=== PATIENT | female | born 1990 | race Caucasian/White ===

== ENCOUNTER 2019-02-25 19:11 | Emergency (ER) | payer OTHER ==
--- NOTE | 2019-02-25 20:03 | PDOC ---
Rapid Medical Evaluation Chief Complaint: Pain Time Seen by Provider: 02/25/19 20:00 Medical Evaluation: 02/25/19 20:00 I have performed a brief exam on this patient. CC: right middle finger pain and swelling PE: swelling to right middle finger at the medial cuticle extending towards the volar surface Orders: nothing The patient will proceed to the ER for further evaluation. Discharge Disposition - Diagnosis Finger pain, right - Referrals - Patient Instructions - Post Discharge Activity
[2019-02-25 20:04] VITALS: BP 122/74; PULSE 84; TEMP 98.2; BMI 25.6
--- NOTE | 2019-02-25 21:25 | PDOC ---
History of Present Illness - General Chief Complaint: Pain Stated Complaint: INFECTED FINGER Time Seen by Provider: 02/25/19 20:00 History Source: Patient - History of Present Illness Initial Comments: 02/25/19 21:23 29 year old female c/o pain to right 3rd digit distal end pain and swelling. patient reports that she bites her nails. denies trauma or injury 02/25/19 21:53 Past History - Past Medical History Allergies/Adverse Reactions: Allergies Allergy/AdvReac Type Severity Reaction Status Date / Time No Known Allergies Allergy Verified 02/25/19 20:01 Home Medications: Ambulatory Orders NK [No Known Home Medication] 02/25/19 Anemia: No Asthma: No Cancer: No Cardiac Disorders: No COPD: No - Suicide/Smoking/Psychosocial Hx Smoking History: Never smoked Review of Systems - Review of Systems Able to Perform ROS?: Yes Is the patient limited Kyrgyz proficient: No Integumentary: Yes: Other (finger pain) *Physical Exam - Vital Signs Last Vital Signs Temp Pulse Resp BP Pulse Ox 98.2 F 84 20 122/74 100 02/25/19 20:01 02/25/19 20:01 02/25/19 20:01 02/25/19 20:01 02/25/19 20:01 - Physical Exam General Appearance: Yes: Appropriately Dressed Extremity: positive: Other (right 3rd digit circumferential erythema with fluid collection? no streaking + erythema) Integumentary: positive: Erythema Neurologic: positive: Fully Oriented, Alert Medical Decision Making - Medical Decision Making I spoke to Dr. Goldman. reports that dr goldman is not police surgeon for hand surgery. 02/25/19 21:55 patient offered to transfer to a tertiary [facility] center. patient is signing out AMA. patient reports that she will drive self to [facility] *DC/Admit/Observation/Transfer Diagnosis at time of Disposition: Finger pain, right, Felon of finger of right hand - Discharge Dispostion Disposition: AGAINST MEDICAL ADVICE - Referrals - Patient Instructions Additional Instructions: please return for any worsening symptoms. - Post Discharge Activity
--- NOTE | 2019-02-25 21:39 | PDOC ---
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 - Post Discharge Activity
== END 2019-02-25 21:51 | disposition left against medical advice (07) ==
LOC: JER 19:11 → JERFT 19:11 → JER 21:51
DX: L03.011 Cellulitis of right finger (principal)
CPT/HCPCS: 99281-25

== ENCOUNTER 2019-08-26 13:05 | Emergency (ER) | payer OTHER ==
[2019-08-26 13:18] VITALS: BP 115/68; PULSE 85; TEMP 97.4; BMI 19.6
[2019-08-26] MEDS ORDERED: IBUPROFEN 600 MG TABLET (FP) PO ONE ×2 (13:32→13:35)
[2019-08-26] MEDS ORDERED: CYCLOBENZAPRINE HCL 10 MG TABLET (FP) PO ONE ×2 (13:33→13:34)
[2019-08-26] MEDS ORDERED: CYCLOBENZAPRINE HCL 10 MG TABLET (FP) ONE (13:35)
--- NOTE | 2019-08-26 13:37 | PDOC ---
History of Present Illness - General Chief Complaint: Injury Stated Complaint: PAIN TO LEFT SIDE S/P FALL AT WORK YESTERDAY Time Seen by Provider: 08/26/19 13:11 History Source: Patient Exam Limitations: No Limitations - History of Present Illness Initial Comments: 08/26/19 13:33 29y F with no significant PMH presenting to ED with complaints of L sided body pain, greatest in the L knee after a fall at work around 2100 yesterday. Pt states she slipped on a wet floor and landed on the L side of her body. She did not lose consciousness. She states she took Tylenol yesterday night and has not taken anything since. Pain is greatest in the L knee. She denies inability to walk, changes in vision, dizziness, chest pain, numbness/tingling, weakness. Allergies: nkda Past History - Past Medical History Allergies/Adverse Reactions: Allergies Allergy/AdvReac Type Severity Reaction Status Date / Time No Known Allergies Allergy Verified 08/26/19 13:08 Home Medications: Ambulatory Orders NK [No Known Home Medication] 08/26/19 Anemia: No Asthma: No Cancer: No Cardiac Disorders: No COPD: No - Psycho Social/Smoking Cessation Hx Smoking History: Never smoked Information on smoking cessation initiated: No Hx Alcohol Use: Yes (SOCIAL) Drug/Substance Use Hx: No Review of Systems - Review of Systems Constitutional: No: Symptoms Reported HEENTM: No: Symptoms Reported Respiratory: No: Symptoms reported Cardiac (ROS): No: Symptoms Reported ABD/GI: No: Symptoms Reported : No: Symptoms Reported Musculoskeletal: Yes: See HPI, Back Pain, Joint Pain, Muscle Pain, Neck Pain Integumentary: No: Symptoms Reported Neurological: No: Symptoms reported *Physical Exam - Vital Signs Last Vital Signs Temp Pulse Resp BP Pulse Ox 97.4 F L 85 16 115/68 100 08/26/19 13:07 08/26/19 13:07 08/26/19 13:08/26/19 13:08/26/19 13:07 - Physical Exam General Appearance: Yes: Nourished, Appropriately Dressed. No: Apparent Distress HEENT: positive: EOMI, JOSE, Normal ENT Inspection Neck: positive: Trachea midline, Supple. negative: Lymphadenopathy (R), Lymphadenopathy (L) Respiratory/Chest: positive: Lungs Clear, Normal Breath Sounds Cardiovascular: positive: Regular Rhythm, Regular Rate Vascular Pulses: Femoral (R): 2+, Femoral (L): 2+, Dorsalis-Pedis (R): 2+, Doralis-Pedis (L): 2+ Gastrointestinal/Abdominal: positive: Soft. negative: Tender Musculoskeletal: positive: Muscle Spasm (L shoulder), Other (no joint laxity, no effusions, no erythema, normal ROM. L knee appears more swollen than R. ). negative: CVA Tenderness, Decreased Range of Motion, Vertebral Tenderness Extremity: positive: Normal Capillary Refill. 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 low suspicion for fractures, dislocation, arterial injuries. will give motrin, flexeril. does not require imaging at this time given normal exam. currently near the end of her cycle, not . will give Motrin and Flexeril. Pt is ambulatory, will dc home. Discharge - Discharge Information Problems reviewed: Yes Clinical Impression/Diagnosis: Knee pain, left Qualifiers: Chronicity: acute Qualified Code(s): M25.562 - Pain in left knee Fall Qualifiers: Encounter type: initial encounter Qualified Code(s): W19.XXXA - Unspecified fall, initial encounter Condition: Improved Disposition: HOME - Admission No - Follow up/Referral Referrals: Jairo Menjivar MD [Primary Care Provider] - - Patient Discharge Instructions Additional Instructions: You were seen in the emergency room for pain after falling. The pain you are experiencing is from the muscles tensing up and swelling after the fall. Swelling and pain are most intense 48 hours after the initial incident. I recommend taking ibuprofen or Advil for the pain. You can apply ice packs to the knee for swelling. Come back to the emergency room if you have difficulty walking, have any numbness/tingling in the legs, notice any discolorations or if any new or concerning symptom develops. Thank you - Post Discharge Activity Work/Back to School Note: Back to Work
--- NOTE | 2019-08-26 14:20 | PDOC ---
Attending Attestation - Resident Resident Name: Aimee Sorto - ED Attending Attestation I have performed the following: I have examined & evaluated the patient, The case was reviewed & discussed with the resident, I agree w/resident's findings & plan - HPI HPI: 08/26/19 13:39 29y F with no significant PMH presenting to ED with complaints of L sided body pain, greatest in the L knee after a fall at work around 2100 yesterday. Pt states she slipped on a wet floor and landed on the L side of her body. She did not lose consciousness. no head injury. She states she took Tylenol yesterday night and has not taken anything since. +ambulatory without difficulty. +mild headache. No changes in vision, dizziness, chest pain, SOB, numbness/tingling, weakness. no syncope or seizure. - Physicial Exam PE: 08/26/19 13:39 Physical exam: General: GCS 15 - NAD, well appearing HEENT: NCAT, PERRL, EOMI. Airway intact. No battles sign or raccoon eyes. No e/ o ocular. Dentition intact. No e/o septal hematoma, nasal bridge stable. Neck: neck supple, no midline C spine tenderness or deformity, ROM intact. No anterior mass or crepitus, trachea midline. +left paracervical/trapezius TTP. Resp: Lungs clear bilaterally Chest: no clavicle or chest wall tenderness or crepitus CVS: RRR, 2+ pulses throughout. Abdomen: Abdomen soft, nontender, nondistended. Back: Back nontender, no midline spinal tenderness along cervical/thoracic/ lumbar spine, FROM, no stepoffs. MSK: Pelvis stable, Extremities symmetric, no focal areas of tenderness or deformities, proximal and distally; no pain on axial loading. FROM in all extrem. no joint laxity, b/l knee, left knee nontender, no palp effusion. Neuro: Alert, oriented appropriately. CN II-XII grossly symmetric and intact. no focal neuro deficits. Sensation and strength intact throughout. Gait normal/ stable. Skin: intact, normal color and well perfused. no rash, no discoloration, no wounds. 08/26/19 14:21 - Medical Decision Making 08/26/19 14:19 Vital Signs Temp Pulse Resp BP Pulse Ox 97.4 F L 85 16 115/68 100 08/26/19 13:07 08/26/19 13:07 08/26/19 13:07 08/26/19 13:07 08/26/19 13:07 The patient was ruled out for clinically significant C-spine injury via NEXUS criteria. Because the patient is A&Ox3, has no focal neurologic deficits, no posterior midline c-spine tenderness to palpation, no evidence of intoxication and has no painful distracting injuries there is no need to obtain radiographic studies to evaluate the cervical spine. no head trauma, no AMS/sz/neuro deficits no head CT imaging indicated no xray imaging indicated as most likely msk contusion left knee min swollen, no tenderness, no joint laxity neuro intact, no focal deficits ambulatory analgesia, muscle relaxants DC stable condition, supportive care, analgesia, return precautions. rest and phys activity as tolerated.
== END 2019-08-26 13:54 | disposition home or self-care (01) ==
LOC: FER 13:05
DX: M25.562 Pain in left knee (principal); W18.39XA Other fall on same level, initial encounter; Y93.89 Activity, other specified; Y92.239 Unspecified place in hospital as the place of occurrence of the external cause; Y99.0 Civilian activity done for income or pay
CPT/HCPCS: 99282-25

== ENCOUNTER 2020-04-27 18:51 | Emergency (ER) | payer OTHER ==
[2020-04-27 19:05] VITALS: BP 121/76; PULSE 72; TEMP 99.1; BMI 19.6
--- OUTSIDE RECORDS SUMMARY | 2020-04-27 19:05 | XMS ---
:1990 Author Organization [facility] Care Team Providers Name Role Phone KRZYSZTOF BARRERA Unavailable Unavailable Pradeep, Nebil B Unavailable Unavailable Pradeep, B Unavailable Unavailable Pradeep, B Unavailable Unavailable Pradeep, B Unavailable Unavailable Pradeep, B Unavailable Unavailable Pradeep, B Unavailable Unavailable Pradeep, B Unavailable Unavailable Pradeep, B Unavailable Unavailable Pradeep, B Unavailable Unavailable Pradeep, B Unavailable Unavailable Pradeep, B Unavailable Unavailable Pradeep, B Unavailable Unavailable LEFKOVITZ, TABATHA Unavailable Unavailable ALIZADEH, PHILIP Unavailable Unavailable Re-disclosure Warning The records that you are about to access may contain information from federally- assisted alcohol or drug abuse programs. If such information is present, then the following federally mandated warning applies: This information has been disclosed to you from records protected by federal confidentiality rules (42 CFR part 2). The federal rules prohibit you from making any further disclosure of this information unless further disclosure is expressly permitted by the written consent of the person to whom it pertains or as otherwise permitted by 42 CFR part 2. A general authorization for the release of medical or other information is NOT sufficient for this purpose. The Federal rules restrict any use of the information to criminally investigate or prosecute any alcohol or drug abuse patient.The records that you are about to access may contain highly sensitive health information, the redisclosure of which is protected by Article 27-F of the [facility] Public Health law. If you continue you may haveaccess to information: Regarding HIV / AIDS; Provided by facilities licensed or operated by the [facility] Office of Mental Health; or Provided by the [facility] Office for People With Developmental Disabilities. If such information is present, then the following [facility] mandated warning applies: This information has been disclosed to you from confidential records which are protected by state law. State law prohibits you from making any further disclosure of this information without the specific written consent of the person to whom it pertains, or as otherwise permitted by law. Any unauthorized further disclosure in violation of state law may result in a fine or skilled nursing sentence or both. A general authorization for the release of medical or other information is NOT sufficient authorization for further disclosure. Encounters Encounter Providers Location Date Indications Data Source(s ) Outpatient Attender: ANALIAREN, 03/08/2019 [facility] PHILIP RUBY EDT [facility] Outpatient Attender: 03/01/[id number] [facility] epi MCNULTY, 02:28:00 PM Health Care ZVIAdmitter: EDT [employer] Manas MCNULTYerrer: KRZYSZTOF BARRERA [id number] Outpatient Attender: [facility]2019 11:43:[facility] AydinAdmitter: [facility] EDT [facility] Insurance Providers Payer name Policy type Policy ID Covered Covered republican's Policy P john / Coverage republican ID relationship to Lo Inf ormation type lo AMTRUST [id number] SP [id number] SELF PAY SP INSURANCE JARROD [id number] HEALTH NON CAP Problems, Conditions, and Diagnoses Code Display Name Description Problem Type Effective Data Sour ce(s) Dates [id number] Unspecified UNSP INJURY OF Diagnosis 03/01/2019 [facility] er injury of UNSP WRIST, HAND 02:28:00 PM [facility] unspecified AND FINGER(S), EDT Care Kya oration wrist, hand and INIT ENCNTR finger(s), initial encounter Results ID Date Data Source [id number] 04/23/2020 04:45:00 PM EDT [facility] Name Value Range Interpretation Description Data Sup porting Code Source(s) Document(s ) SARS [facility] coronavirus 2 RNA This lab was ordered by Nilesh graf and reported by [facility]. Procedure
--- NOTE | 2020-04-27 19:18 | PDOC ---
History of Present Illness - General Chief Complaint: Rash Stated Complaint: RIGHT ARM RASH Time Seen by Provider: 04/27/20 19:16 History Source: Patient Exam Limitations: No Limitations - History of Present Illness Initial Comments: 04/27/20 20:06 This is a 30-year-old female who comes in complaining of a rash on her right arm. Patient also is complaining of some mild dysuria and urinary symptoms. Patient denies any nausea vomiting diarrhea. Patient denies any fevers or chills. Patient said the rash is itchy and she has had it for about 2 to 3 days. Allergies: as per nursing notes Past Medical History: none Social history: Lives with family. No smoking. No alcohol. No illicit drugs. Surgical history: None General: No fevers or chills, no weakness, no weight loss HEENT: No change in vision. No sore throat,. No ear pain CardioVascular: no chest discomfort. No shortness of breath Respiratory:No cough, or wheezing. Gastrointestinal: no nausea, vomiting, diarrhea or constipation, No rectal bleeding Genitourinary: No dysuria, hematuria, or frequency Musculoskeletal: No joint or muscle pain or swelling Neurologic: No headache, vertigo, dizziness or loss of consciousness Psychiatric: nor depression Skin: No rashes or easy bruising Endocrine: no increased thirst or abnormal weight change Allergic: no skin or latex allergy All other systems reviewed and normal Exam: General: Well-nourished well-developed individual, no acute distress HEENT: Throat: Normal, tonsils normal, no erythema or exudate Neck: Supple, no meningeal signs, no lymphadenopathy Eyes::Pupils equal reactive and round, extraocular motion intact Chest: Nontender to palpation Cardiac: S1-S2 normal, regular rate and rhythm, no murmurs rubs or gallops Respiratory: Lungs clear to auscultation bilateral Abdomen: Soft, nondistended, normal bowel sounds, there is no tenderness on palpation diffusely Extremities: Warm, dry, no cyanosis, clubbing, or edema Skin: There is a rash on the inside of the right arm near the elbow area that is consistent with poison pricila Neuro: Alert and oriented x3, CN II - XII intact, nonfocal exam with normal strength, normal sensation, normal reflexes, normal gait, Psych: Normal mood and affect Assessment and plan: This is a 30-year-old female who comes in complaining of some urinary symptoms and a rash on her arm. Patient's rash is consistent with poison pricila and we did a urinalysis that was negative for any evidence of infection. Patient discharged we will follow-up with her primary care doctor as needed Past History - Medical History Allergies/Adverse Reactions: Allergies Allergy/AdvReac Type Severity Reaction Status Date / Time No Known Allergies Allergy Verified 04/27/20 18:51 Home Medications: Ambulatory Orders NK [No Known Home Medication] 08/26/19 Anemia: No Asthma: No Cancer: No Cardiac Disorders: No COPD: No Other medical history: DENIES - Reproductive History Is Patient Now?: No (UNKOWN) - Psycho-Social/Smoking History Smoking History: Never smoked - Substance Abuse Hx (Audit-C & DAST Scrn) How often the patient has a drink containing alcohol: Monthly or less Number of drinks the patient has on a typical day: 1 or 2 How often the patient has six or more drinks on one occasion: Never Score: In Men: 4 or > Positive; In Women: 3 or > Positive: 1 Screen Result (Pos requires Nsg. Audit-10AR): Negative In the last yr the pt used illegal drug/Rx for NonMed reason: No Score: Yes response is considered Positive: 0 Screen Result (Positive result requires Nsg. DAST-10): Negative *Physical Exam - Vital Signs Last Vital Signs Temp Pulse Resp BP Pulse Ox 99.1 F 72 17 121/76 100 04/27/20 19:01 04/27/20 19:01 04/27/20 19:01 04/27/20 19:01 04/27/20 19:01 Discharge - Discharge Information Problems reviewed: Yes Clinical Impression/Diagnosis: Poison pricila dermatitis Contact dermatitis Qualifiers: Contact dermatitis type: allergic Contact dermatitis trigger: other trigger Qualified Code(s): L23.89 - Allergic contact dermatitis due to other agents Condition: Stable Disposition: HOME - Admission No - Follow up/Referral - Patient Discharge Instructions Additional Instructions: You can take Benadryl as needed for the itching Also you can apply some calamine lotion to it. Return to the emergency department immediately with ANY new, persistent or worsening symptoms. Continue any medications as previously prescribed by your physician. You should follow up with your primary doctor as soon as possible regarding today's emergency department visit. . Please make sure your doctor reviews the results of your emergency evaluation. Thank you for coming to the Emergency Department today for your care. It was a pleasure to see you today. Please note that your evaluation is INCOMPLETE until you follow-up with your doctor. - Post Discharge Activity
== END 2020-04-27 20:16 | disposition home or self-care (01) ==
LOC: FER 18:51
DX: L23.7 Allergic contact dermatitis due to plants, except food (principal); L23.89 Allergic contact dermatitis due to other agents
CPT/HCPCS: 81003; 87086; 99283-25

== ENCOUNTER 2022-03-26 12:18 | Emergency (ER) | payer OTHER ==
[2022-03-26 12:34] VITALS: BP 127/87; PULSE 77; RESP 20; TEMP 98.3
[2022-03-26 13:16] LABS: HCG,QUALITATIVE URINE Negative
== END 2022-03-26 18:12 | disposition home or self-care (01) ==
LOC: FER 12:18
DX: D25.9 Leiomyoma of uterus, unspecified (principal)
CPT/HCPCS: 76830-TC; 81003; 84703; 99284-25